=== PATIENT | female | born 1975 | race Native Hawaiian/Other Pacific Islander ===

== ENCOUNTER 2020-08-09 08:28 | Outpatient (CLI) | payer BC | END 2020-08-09 19:33 | disposition home or self-care (01) | LOC: MAMMO 08:28 | PROVIDERS: ATTEND Family Medicine | DX: Z12.31 Encounter for screening mammogram for malignant neoplasm of breast (principal) ==

== ENCOUNTER 2020-08-13 11:58 | Outpatient (CLI) | payer BC | END 2020-08-13 21:34 | disposition home or self-care (01) | LOC: LABW 11:58 | PROVIDERS: ATTEND Internal Medicine | DX: N39.0 Urinary tract infection, site not specified (principal) | CPT/HCPCS: 81000; 87077; 87086; 87088; 87186 ==

== ENCOUNTER 2021-01-27 14:13 | Outpatient (CLI) | payer BC | END 2021-01-27 21:30 | disposition home or self-care (01) | LOC: LAB 14:13 | PROVIDERS: ATTEND Internal Medicine | DX: N39.0 Urinary tract infection, site not specified (principal) | CPT/HCPCS: 81000; 87077; 87086; 87088; 87186 ==

== ENCOUNTER 2021-01-29 07:52 | Outpatient (CLI) | payer BC | END 2021-01-29 21:23 | disposition home or self-care (01) | LOC: CT 07:52 | PROVIDERS: ATTEND Internal Medicine | DX: R31.9 Hematuria, unspecified (principal) ==

== ENCOUNTER 2021-04-30 11:02 | Outpatient (CLI) | payer BC, OTHER ==
[2021-04-30 11:31] LABS: POTASSIUM 4.3 mmol/L (3.6-5.2)
== END 2021-04-30 20:06 | disposition home or self-care (01) ==
LOC: LABW 11:02
PROVIDERS: ATTEND Internal Medicine
DX: Z01.84 Encounter for antibody response examination (principal); E87.5 Hyperkalemia
CPT/HCPCS: 36415; 80048; 83735; 86769

== ENCOUNTER 2022-07-11 10:47 | Emergency (ER) | payer BC ==
[~2022-07-11] VITALS: Ht 170.2 cm; Wt 79.4 kg
[2022-07-11 10:50] VITALS: TEMP 98.5
[2022-07-11 11:35] VITALS: BP 109/65
== END 2022-07-11 11:35 | disposition home or self-care (01) ==
LOC: ED 10:47
DX: L50.8 Other urticaria (principal); T78.49XA Other allergy, initial encounter; X58.XXXA Exposure to other specified factors, initial encounter; Y92.89 Other specified places as the place of occurrence of the external cause
CPT/HCPCS: 96372; 99282; J2930